=== PATIENT | female | born 1945 | race Caucasian/White ===

== ENCOUNTER 2017-10-07 16:45 | Emergency (ER) | payer MEDICARE, OTHER ==
--- NOTE | 2017-10-07 17:49 | EDM.PDOC ---
ED HPI GENERAL MEDICAL PROBLEM - General Chief Complaint: ENT Problem Stated Complaint: UNCONTROLABLE NOSE BLEED Time Seen by Provider: 10/07/17 17:22 Source of Information: Reports: Patient, Family (), RN Notes Reviewed History Limitations: Reports: No Limitations - History of Present Illness INITIAL COMMENTS - FREE TEXT/NARRATIVE: The patient states that she developed right-sided epistaxis around 16:00 this afternoon, while sleeping. She has applied pressure, but it has not abated. She went to the walk in clinic, but was sent here. The patient states that she has had epistaxis only one other time in her life. She does not have hypertension. She is not on any anticoagulants. - Related Data Allergies Allergy/AdvReac Type Severity Reaction Status Date / Time cefaclor [From Ceclor] Allergy Hives Verified 10/07/17 17:17 Home Meds: Home Meds Aspirin [Ecotrin] 10/07/17 [History] Estogen Proges. 10/07/17 [History] Ezetimibe [Zetia] 10 mg PO DAILY 10/07/17 [History] Past Medical History [employer] History: Reports: Endometriosis Musculoskeletal History: Reports: Arthritis - Past Surgical History HEENT Surgical History: Reports: Cataract Surgery, Eye Surgery (Bilateral retinal tear repair) GI Surgical History: Reports: Appendectomy, Cholecystectomy Female Surgical History: Reports: Hysterectomy, Salpingo-Oophorectomy, Other (See Below) (Exploratory laparoscopy for endometriosis) Musculoskeletal Surgical History: Reports: Arthroscopic Knee (bilateral), Other (See Below) (Right great toe joint surgery. Bilateral feet neuroma excisions) Social & Family History - Tobacco Use Smoking Status *Q: Never Smoker - Alcohol Use Alcohol Use History: Yes Alcohol Use Frequency: Socially - Recreational Drug Use Recreational Drug Use: No - Living Situation & Occupation Living situation: Reports: , with Spouse Occupation: Retired ED ROS ENT - Review of Systems Review Of Systems: See Below Constitutional: Reports: No Symptoms HEENT: Reports: No Symptoms Respiratory: Reports: No Symptoms Cardiovascular: Reports: No Symptoms Endocrine: Reports: No Symptoms GI/Abdominal: Reports: No Symptoms : Reports: No Symptoms Musculoskeletal: Reports: No Symptoms Skin: Reports: No Symptoms Neurological: Reports: No Symptoms Psychiatric: Reports: No Symptoms Hematologic/Lymphatic: Reports: No Symptoms Immunologic: Reports: No Symptoms ED EXAM, ENT - Physical Exam Exam: See Below Exam Limited By: No Limitations General Appearance: Alert, WD/WN, No Apparent Distress Eye Exam: Bilateral Eye: Normal Inspection Ears: Normal External Exam, Normal Canal, Hearing Grossly Normal, Normal TMs Nose: Other (Blood within right nostril, however, no active bleeding. A prominent vessel is visible on the right nasal septum. Left nostril normal in appearance.) Mouth/Throat: Normal Inspection, Normal Gums, Normal Lips, Normal Oropharynx ( No blood in posterior oropharynx, after the patient gargled water), Normal Teeth Head: Atraumatic, Normocephalic Neck: Normal Inspection, Supple, Non-Tender, Full Range of Motion. No: Lymphadenopathy (L), Lymphadenopathy (R) ED ENT PROCEDURES - Epistaxis Procedure Indication: Epistaxis, Uncontrolled Recent anticoagulants/antiplatlets: No Uncontrolled HTN: No Recent septal/nasal surgery: No Site of bleeding: Right Nare, Anterior Clearing of clots: Other (Not needed) Topical Meds: Topical Cocaine Ice pack to area: No Chemical cautery: Silver Nitrate Topical Post cautery: Other (Petrolium jelly) Complications: No Course - Vital Signs Last Recorded V/S: Last Vital Signs Temp 36.9 C 10/07/17 17:15 Pulse 108 H 10/07/17 17:15 Resp 18 10/07/17 17:15 BP 151/104 H 10/07/17 17:15 Pulse Ox 99 10/07/17 17:15 - Orders/Labs/Meds Meds: Medications Discontinued Medications Generic Name Dose Route Start Last Admin Trade Name Michelle PRN Reason Stop Dose Admin Cocaine HCl 4 ml 10/07/17 17:23 10/07/17 17:50 Cocaine Hcl TOP 10/07/17 17:24 4 ml ONETIME STA Administration - Re-Assessments/Exams Free Text/Narrative Re-Assessment/Exam: 10/07/17 17:47 After pinching the nostrils for several minutes, the bleeding appeared to stop, and a prominent vessel was visible on the right septum. I recommended to the patient that I cauterized the vessel, noting that it is possible that the active cauterizing may actually cause the nose to bleed again. The patient agreed for me to proceed. Cautery was then performed with silver nitrate, which then caused the visible vessel to bleed. Cocaine solution was then applied to the area of bleeding, along with pressure, and after a few minutes, the bleeding has again ceased. I had the patient rinse out her mouth, and there is no visible blood in the posterior oropharynx at this time. I have asked the nurse to provide some petroleum jelly so that the patient can apply a thin smear to her bilateral nasal septae. I will wait approximately 15 minutes before reexamining the patient, and if she is still not bleeding, she may safely be discharged home. 10/07/17 18:04 I reexamined the patient. No new bleeding. I will discharge her home. Departure - Departure Time of Disposition: 18:04 Disposition: Home, Self-Care 01 Condition: Good Clinical Impression: Right-sided epistaxis - Discharge Information Instructions: Nosebleed, [id number] Referrals: PCP,None [Primary Care Provider] - Forms: ED Department Discharge Additional Instructions: You were seen in the emergency room for a right-sided nosebleed. The bleeding stopped after direct pressure, but re-bled after cautery of the culprit blood vessel was attempted. The bleeding was then controlled with topical cocaine solution. We recommend that you apply a smear of petroleum jelly to both sides of your nasal septum, in order to keep the mucous membranes moist. If you develop a nosebleed again, sit upright, tilt your head slightly forward, and pinch your nostrils tightly for 10-15 minutes. This usually stops the bleeding, but if it does not, return to the ER for further evaluation and treatment.
== END 2017-10-07 18:30 | disposition home or self-care (01) ==
LOC: JD.ED 16:45
DX: R04.0 Epistaxis (principal); Z79.82 Long term (current) use of aspirin; Z79.899 Other long term (current) drug therapy
CPT/HCPCS: 30901; 99282-25; 99283-25